=== PATIENT | female | born 1980 | race Two or more races ===

== ENCOUNTER 2018-02-17 05:50 | Day surgery (SDC) | payer OTHER ==
[2018-02-17] MEDS ORDERED: NEURONTIN300 MG PO (09:24)
[2018-02-17] MEDS ORDERED: ULTRACET PO (09:24)
[2018-02-17] MEDS ORDERED: POLY119PG PO (09:25)
== END 2018-02-17 12:20 | disposition home or self-care (01) ==
LOC: CIR.AMB 05:50
DX: K42.0 Umbilical hernia with obstruction, without gangrene (principal); K43.6 Other and unspecified ventral hernia with obstruction, without gangrene